=== PATIENT | female | born 1995 | race African-American/Black ===

== ENCOUNTER 2016-05-02 19:52 | Emergency (ER) | payer SELFPAY ==
[~2016-05-02] VITALS: Ht 180.3 cm; Wt 59.0 kg
[~2016-05-02 19:52] MED LIST: ACETAMINOPHEN-1 EAC1 ORAL; CIPROFLOXACIN500 M2 ORAL; IBUPROFEN600 MG ORAL; MACROBID100 MG ORAL; NORCO 5-325 TA1 EACH ORAL; PHENERGAN25 M1 ORAL; ZOFRAN ODT4 MG ORAL
[2016-05-02 20:22] VITALS: BP 117/81
[2016-05-02] MEDS ORDERED: Metoclopramide 10mg/10ml Liq NG ONE (21:00)
--- NOTE | 2016-05-02 21:32 | Emergency Room Report ---
History of Present Illness General Chief Complaint: Abdominal Pain Present Illness HPI 20-year-old female presents to emergency department complaining of nausea, vomiting and upper abdominal pain times one day. Patient states last vaginal period was the end of February. Patient denies lower abdominal pain denies vaginal discharge denies vaginal bleeding. Patient denies blood in the vomit patient denies constipation or diarrhea. Patient rates her pain as 8/10 in severity localized to the epigastric region. Patient also reports mild burning sensation. Patient denies recent travel or ill contacts. Patient denies previous pregnancies. As dysuria, hematuria or frequency . Denies CP, Palpitations, LOC, AMS, dizziness, Changes in Vision, Sensation, paresthesias, or a sudden severe headache. (Herminia Almazan P.A.) Allergies: Coded Allergies: No Known Allergies (Unverified , 01/04/14) Patient History Past Medical History: see triage record Past Surgical History: none Pertinent Family History: none Last Menstrual Period: feb Reviewed Nursing Documentation: PMH: Agreed, PSxH: Agreed (Herminia Almazan P.ADwight) Nursing Documentation-PMH Hx Neurological Problems: Yes - MIGRAINE (Herminia Almazan P.ADwight) Review of Systems All Other Systems: negative except mentioned in HPI (Herminia Almazan P.A.) Physical Exam Vital Signs Date Time Temp Pulse Resp B/P Pulse Ox O2 Delivery O2 Flow Rate FiO2 05/02/16 20:03 98.1 67 16 112/77 99 Room Air Sp02 EP Interpretation: reviewed, normal General Appearance: no apparent distress, alert, GCS 15, non-toxic Head: normocephalic, atraumatic Eyes: bilateral eye PERRL, bilateral eye normal inspection ENT: hearing grossly normal, normal pharynx, no angioedema, normal voice Neck: full range of motion, supple/symm/no masses Respiratory: chest non-tender, lungs clear, normal breath sounds, speaking full sentences Cardiovascular #1: regular rate, rhythm, no edema Gastrointestinal: normal bowel sounds, non tender, soft, no guarding, no rebound, other - Negative [place] signs, Negative MacBurney's sign, Negative Rosvigns Sign, Negative Psoas, No Peritoneal signs. mild midline Epigastric TTP , no TTP to the lower quadrants. Rectal: deferred Genitourinary: normal inspection, no CVA tenderness Musculoskeletal: back normal, gait/station normal, normal range of motion, non- tender, no calf tenderness Neurologic: alert, oriented x3, responsive, motor strength/tone normal, sensory intact, speech normal Psychiatric: judgement/insight normal, memory normal, mood/affect normal, no suicidal/homicidal ideation Skin: normal color, no rash, warm/dry, well hydrated Lymphatic: no adenopathy (Herminia Almazan) Medical Decision Making PA Attestation Dr. Martinez is my supervising Physician whom patient management has been discussed with. (Herminia Almazan) Diagnostic Impression: Primary Impression: Positive test Additional Impression: Nausea and vomiting during ER Course 20-year-old female presents to emergency department complaining of nausea, vomiting and upper abdominal pain times one day. Patient states last vaginal period was the end of February. Patient denies lower abdominal pain denies vaginal discharge denies vaginal bleeding. Patient denies blood in the vomit patient denies constipation or diarrhea. Patient rates her pain as 8/10 in severity localized to the epigastric region. Patient also reports mild burning sensation. Patient denies recent travel or ill contacts. Patient denies previous pregnancies. As dysuria, hematuria or frequency . Ddx considered but are not limited to: , ectopic , viral GE, UTI Vital signs: are WNL, pt. is afebrile H&PE are most consistent with: benign abdominal PE, no suggestion of acute intra -abdominal process. ORDERS: -Urine hcg- Positive -serum Hcg Quant: Pending -Pelvic US complete- Pending ED INTERVENTIONS: -10mg Reglan PO Pt is signed out to Dr. Delacruz Labs Test 05/02/16 20:15 Urine HCG, Qualitative Positive (Herminia Amlazan PDwightADwight) ER Course Received signout from Dr Martinez and WING Almazan to followup Pelvic sono for + preg with abd pain IUP verified No other abnormaltiy Patient feels better Advised MANAGER HEART FAILURE followup Understands to return to ER for worsening pain, vaginal bleeding, other concerns DC home (SAMAN DELACRUZ M.D.) Last Vital Signs Date Time Temp Pulse Resp B/P Pulse Ox O2 Delivery O2 Flow Rate FiO2 05/02/16 20:22 98.0 71 15 117/81 99 Room Air (Herminia Almazan P.A.) Status: improved (SAMAN DELACRUZ M.D.) Disposition: HOME, SELF-CARE Signed Out To: Dr. Delacruz (Herminia Almazan) Herminia Almazan May 02, 2016 21:32 SAMAN DELACRUZ M.D. May 02, 2016 23:29
[2016-05-02 23:13] VITALS: BP 121/84
[2016-05-02 23:30] VITALS: BP 121/84
--- NOTE | 2016-05-03 10:27 | Diagnostic Imaging Report ---
Indication: PAIN positive test Technique: Transabdominal and transvaginal images Comparison: Findings: Uterus measures 10.3 cm length of 7.2 cm AP. Within the endometrium, there is a gestational sac which contains a pole with a crown-rump length of 36 mm, corresponding to an estimated gestational age of 10 weeks 4 days. Is positive heart activity, heart rate 171 beats for minute. Yolk sac is also demonstrated. No subchorionic hemorrhage. Normal myometrium. No free cul-de-sac fluid. Left ovary measures 2.3 cm length. Right ovary measures 2.3 cm length. No adnexal mass. Impression: 10 week 4 day, by crown-rump length measurement, single live intrauterine . No unusual features
== END 2016-05-02 23:30 | disposition home or self-care (01) ==
LOC: EMR 20:21
DX: O21.9 Vomiting of pregnancy, unspecified (principal); Z3A.00 Weeks of gestation of pregnancy not specified
CPT/HCPCS: 76856; 81025; 99283

== ENCOUNTER 2016-07-31 00:50 | Emergency (ER) | payer SELFPAY ==
[~2016-07-31] VITALS: Ht 182.9 cm; Wt 68.0 kg
[2016-07-31] MEDS ORDERED: PRENATAL 19 TA1 EAC1 PO (01:00)
--- NOTE | 2016-07-31 01:26 | Emergency Room Report ---
History of Present Illness General Chief Complaint: Abdominal Pain Source: Patient Present Illness HPI Patient present with complaints of bilateral lower abdominal cramping Reports pain came on this evening approximately 8 PM Patient is not clear on the date of her however approximately 6 months Denies any vaginal bleeding or gush of fluids Denies any chest pain or shortness of breath denies any flank pain Patient did have episode of vomiting as well denies any diarrhea Cramping is 7/10 Denies any dysuria frequency Allergies: Coded Allergies: No Known Allergies (Unverified , 01/04/14) Patient History Past Medical History: see triage record Pertinent Family History: none Last Menstrual Period: unk Now: Yes - 6 months : 1 Para: 0 Reviewed Nursing Documentation: PMH: Agreed, PSxH: Agreed Nursing Documentation-PMH Hx Neurological Problems: Yes - MIGRAINE Review of Systems All Other Systems: negative except mentioned in HPI Physical Exam Vital Signs Date Time Temp Pulse Resp B/P Pulse Ox O2 Delivery O2 Flow Rate FiO2 07/31/16 00:54 98.4 100 20 122/73 100 Room Air Sp02 EP Interpretation: reviewed, normal General Appearance: mild distress - Patient appears uncomfortable Head: normocephalic, atraumatic Eyes: bilateral eye EOMI, bilateral eye PERRL ENT: hearing grossly normal, normal pharynx, TMs + canals normal, uvula midline Neck: full range of motion, supple, no meningismus, no bony tend Respiratory: lungs clear, normal breath sounds, no rhonchi, no respiratory distress, no retraction, no accessory muscle use Cardiovascular #1: normal peripheral pulses, regular rate, rhythm, no edema, no gallop, no JVD, no murmur Gastrointestinal: normal bowel sounds, no hernia, no pulsatile mass, no rebound , other - abdomen is palpable, uncomfortable on palpation of the suprapubic area Genitourinary: no CVA tenderness, other - os is closed on the pelvic exam, there is white discharge noted Musculoskeletal: normal inspection Neurologic: oriented x3, responsive, jackscrew man III-XII nml as tested, motor strength/ tone normal, sensory intact Psychiatric: mood/affect normal Skin: normal color, no rash, warm/dry, palpation normal Lymphatic: normal inspection, no adenopathy Medical Decision Making Diagnostic Impression: Primary Impression: Abdominal pain affecting ER Course The os is closed, patient's pelvic exam shows evidence of discharge, raising concern of possible PID Otherwise patient's urine sample is clear Given the patient's questionable weeks of however likely over 24 weeks And given the abdominal pain and off-and-on cramping patient will require labor and delivery followup We do not have that service available at this facility contact was made with [facility] I spoke to Dr. Major who will accept the patient to that facility Labs Test 07/31/16 01:04 07/31/16 01:30 Urine Color Yellow Urine Appearance Clear Urine pH 8 (4.5-8.0) Urine Specific [place] 1.010 (1.005-1.035) Urine Protein Negative (NEGATIVE) Urine Glucose (UA) Negative (NEGATIVE) Urine Ketones Negative (NEGATIVE) Urine Occult Blood Negative (NEGATIVE) Urine Nitrite Negative (NEGATIVE) Urine Bilirubin Negative (NEGATIVE) Urine Urobilinogen Normal MG/DL (0.0-1.0) Urine Leukocyte Esterase Negative (NEGATIVE) White Blood Count 9.8 K/UL (4.8-10.8) Red Blood Count 3.47 M/UL (4.20-5.40) Hemoglobin 10.8 G/DL (12.0-16.0) Hematocrit 31.1 % (37.0-47.0) Mean Corpuscular Volume 90 FL (80-99) Mean Corpuscular Hemoglobin 31.2 PG (27.0-31.0) Mean Corpuscular Hemoglobin Concent 34.8 G/DL (32.0-36.0) Red Cell Distribution Width 11.7 % (11.6-14.8) Platelet Count 215 K/UL (150-450) Mean Platelet Volume 7.8 FL (6.5-10.1) Neutrophils (%) (Auto) 78.6 % (45.0-75.0) Lymphocytes (%) (Auto) 12.5 % (20.0-45.0) Monocytes (%) (Auto) 7.9 % (1.0-10.0) Eosinophils (%) (Auto) 0.2 % (0.0-3.0) Basophils (%) (Auto) 0.9 % (0.0-2.0) Sodium Level 134 mEQ/L (135-145) Potassium Level 4.3 mEQ/L (3.4-4.9) Chloride Level 97 mEQ/L (98-107) Carbon Dioxide Level 23 mEQ/L (20-30) Anion Gap 14 (5-15) Blood Urea Nitrogen 8 mg/dL (7-23) Creatinine 0.6 mg/dL (0.5-0.9) Estimat Glomerular Filtration Rate > 60 mL/min (>60) Glucose Level 104 mg/dL (74-106) Calcium Level 9.0 mg/dL (8.6-10.2) Total Bilirubin < 0.2 mg/dL (0.0-1.2) Aspartate Amino Transf (AST/SGOT) 13 U/L (5-40) Alanine Aminotransferase (ALT/SGPT) 6 U/L (3-33) Alkaline Phosphatase 44 U/L (35-104) Total Protein 6.7 g/dL (6.6-8.7) Albumin 3.3 g/dL (3.5-5.2) Globulin 3.4 g/dL Albumin/Globulin Ratio 0.9 (1.0-2.7) Lipase 20 U/L (< 60) Last Vital Signs Date Time Temp Pulse Resp B/P Pulse Ox O2 Delivery O2 Flow Rate FiO2 07/31/16 00:54 98.4 100 20 122/73 100 Room Air Status: improved Disposition: XFER SHT-TRM HOSP Condition: Serious VASILIY ACOSTA D.O. Jul 31, 2016 01:26
[2016-07-31] MEDS ORDERED: Metoclopramide 10mg/2ml Inj IVP ONE (01:30)
[2016-07-31 01:31] LABS: APPEARANCE,URINE CLEAR; KETONES,URINE NEGATIVE (NEGATIVE); NITRITE,URINE NEGATIVE (NEGATIVE); PH,URINE 8 (4.5-8.0); PROTEIN,URINE NEGATIVE (NEGATIVE); UROBILINOGEN,URINE NORMAL MG/DL (0.0-1.0)
[2016-07-31 01:40] LABS: LEUKOCYTE ESTERASE ,URINE NEGATIVE (NEGATIVE)
[2016-07-31 01:59] LABS: BASOPHILS % (AUTO) 0.9 % (0.0-2.0); EOSINOPHILS % (AUTO) 0.2 % (0.0-3.0); LYMPHOCYTES % (AUTO) 12.5 % (20.0-45.0); MEAN CORPUSCULAR HEMOGLOBIN 31.2 PG (27.0-31.0); MEAN CORPUSCULAR HGB CONC 34.8 G/DL (32.0-36.0); MEAN CORPUSCULAR VOLUME 90 FL (80-99); MEAN PLATELET VOLUME 7.8 FL (6.5-10.1); MONOCYTES % (AUTO) 7.9 % (1.0-10.0); NEUTROPHILS % (AUTO) 78.6 % (45.0-75.0); PLATELET COUNT 215 K/UL (150-450); RED BLOOD COUNT 3.47 M/UL (4.20-5.40); RED CELL DISTRIBUTION WIDTH 11.7 % (11.6-14.8); WHITE BLOOD COUNT 9.8 K/UL (4.8-10.8)
[2016-07-31 02:08] VITALS: BP 106/75
[2016-07-31 02:13] LABS: ALANINE AMINOTRANSFERASE 6 U/L (3-33); ALBUMIN/GLOBULIN RATIO 0.9 (1.0-2.7); ANION GAP 14 (5-15); ASPARTATE AMINO TRANSFERASE 13 U/L (5-40); CARBON DIOXIDE 23 mEQ/L (20-30); CHLORIDE 97 mEQ/L (98-107); CREATININE 0.6 mg/dL (0.5-0.9); GLOMERULAR FILTRATION RATE > 60 mL/min (>60); HEMOLYSIS 0; LIPASE 20 U/L (< 60); POTASSIUM 4.3 mEQ/L (3.4-4.9); SODIUM 134 mEQ/L (135-145); TOTAL PROTEIN 6.7 g/dL (6.6-8.7)
[2016-07-31 02:46] VITALS: BP 106/75
== END 2016-07-31 02:55 | disposition short-term general hospital (02) ==
LOC: EMR 01:40
DX: R10.9 Unspecified abdominal pain (principal); O26.92 Pregnancy related conditions, unspecified, second trimester; Z3A.24 24 weeks gestation of pregnancy; R11.10 Vomiting, unspecified
CPT/HCPCS: 36415; 80053; 81003; 83690; 85025; 96374; 96375; 99285; J2765

== ENCOUNTER 2017-04-17 17:12 | Emergency (ER) | payer OTHER ==
[~2017-04-17] VITALS: Ht 180.3 cm; Wt 77.6 kg
[~2017-04-17 17:12] MED LIST changes: +PRENATAL 19 TA1 EAC1 PO
--- NOTE | 2017-04-17 17:42 | Emergency Room Report ---
History of Present Illness General Chief Complaint: Pain Source: Patient Present Illness HPI 21 YO Female presents to the ED c/o 8/10 right foot pain and pain to the lower sides of both ankles x 1 week. denies trauma or fall. pt. also reports 5/10 in severity left heel pain. Reports working long hours standing/walking. pain mainly localized to plantar aspect of the right foot. denies swelling, open wounds, bruises, or erythema. pt. is currently . Denies numbness tingling or loss of sensation or gross motor movements of the extremities, incontinence of bowel or bladder. Denies CP, Palpitations, LOC, AMS, dizziness, Changes in Vision, Sensation, paresthesias, or a sudden severe headache. Allergies: Coded Allergies: No Known Allergies (Unverified , 01/04/14) Patient History Past Medical History: see triage record Past Surgical History: none Pertinent Family History: none Last Menstrual Period: Now: No : 1 Para: 1 Reviewed Nursing Documentation: PMH: Agreed, PSxH: Agreed Nursing Documentation-PMH Hx Neurological Problems: Yes - MIGRAINE Review of Systems All Other Systems: negative except mentioned in HPI Physical Exam Vital Signs Date Time Temp Pulse Resp B/P (MAP) Pulse Ox O2 Delivery O2 Flow Rate FiO2 04/17/17 17:23 98.4 70 20 111/76 98 Room Air 98.4 Sp02 EP Interpretation: reviewed, normal General Appearance: no apparent distress, alert, GCS 15, non-toxic Head: normocephalic, atraumatic Eyes: bilateral eye normal inspection, bilateral eye PERRL ENT: hearing grossly normal, normal voice Neck: full range of motion Respiratory: chest non-tender, lungs clear, normal breath sounds, speaking full sentences Cardiovascular #1: regular rate, rhythm, no edema, normal capillary refill Musculoskeletal: back normal, gait/station normal - some compensation noted. , normal range of motion, tender - TTP to the plantar aspect of the right foot. and the left heel, no instability, open wounds, bruises, swelling or obvious deformities. Neurologic: alert, oriented x3, responsive, motor strength/tone normal, sensory intact, speech normal, grossly normal Psychiatric: judgement/insight normal Skin: normal color, no rash, warm/dry, well hydrated Medical Decision Making PA Attestation Dr. avelar is my supervising Physician whom patient management has been discussed with. Diagnostic Impression: Primary Impression: Plantar fasciitis Additional Impression: Ankle pain Qualified Codes: M25.571 - Pain in right ankle and joints of right foot ER Course 21 YO Female presents to the ED c/o 8/10 right foot pain and pain to the lower sides of both ankles x 1 week. denies trauma or fall. pt. also reports 5/10 in severity left heel pain. Reports working long hours standing/walking. pain mainly localized to plantar aspect of the right foot. denies swelling, open wounds, bruises, or erythema. pt. is currently . Denies numbness tingling or loss of sensation or gross motor movements of the extremities, incontinence of bowel or bladder. Denies CP, Palpitations, LOC, AMS, dizziness, Changes in Vision, Sensation, paresthesias, or a sudden severe headache. Ddx considered but are not limited to Fracture, dislocation, contusion, Sprain/ Strain/Spasm, plantar fasciitis, ankle splints. Vital signs: are WNL, pt. is afebrile H&PE are most consistent with musculoskeletal injury will perform imaging to r/ o fractures/dislocations. ORDERS: - X-ray Right Foot 3 views - negative for fx, Dislocation, or significant soft tissue injury, per preliminary read in ED, and signed by WING Almazan , my supervising physician has reviewed, and agrees with my interpretation. - X-ray Left Foot 2 views - negative for fx, Dislocation, or significant soft tissue injury, per preliminary read in ED, and signed by WING Almazan , my supervising physician has reviewed, and agrees with my interpretation ED INTERVENTIONS: -Motrin PO DISCHARGE: At this time pt. is stable for d/c to home. Will provide printed patient care instructions, and any necessary prescriptions. Care plan and follow up instructions have been discussed with the patient prior to discharge. Other X-Ray Diagnostic Results Other X-Ray Diagnostic Results #1: X-Ray ordered: right foot # of Views/Limited Vs Complete: 3 View Indication: Pain EP Interpretation: Yes WING Xray: Interpretation reviewed, by supervising MD, and agrees with findings. Interpretation: no dislocation, no soft tissue swelling, no fractures Impression: No acute disease Electronically Signed by: Herminia Almazan PA-C Other X-Ray Diagnostic Results #2: X-Ray ordered: Left Foot # of Views/Limited Vs Complete: 2 View Indication: Pain EP Interpretation: Yes WING Xray: Interpretation reviewed, by supervising MD, and agrees with findings. Interpretation: no soft tissue swelling, no fractures Impression: No acute disease Electronically Signed by: Herminia Almazan PA-C Last Vital Signs Date Time Temp Pulse Resp B/P (MAP) Pulse Ox O2 Delivery O2 Flow Rate FiO2 04/17/17 17:23 98.4 70 20 111/76 98 Room Air 98.4 Disposition: HOME, SELF-CARE Condition: Stable Scripts Naproxen Sodium (NAPROXEN SODIUM) 550 Mg Tablet 550 MG ORAL TWICE A DAY for 7 Days, #14 TAB Prov: Herminia Almazan 04/17/17 Departure Forms: Return to Work Return to Work Date: Apr 18, 2017 Work Restrictions: No Prolonged Standing Other Restrictions: no prolonged standing or walking. please accomodate with chair. Return to Full Activity: Apr 25, 2017 Patient Instructions: Ankle Pain, Plantar Fasciitis Additional Instructions: Take medications as directed. Follow up with a Primary Care Provider in 3-5 days, even if your symptoms have resolved. --Please review list of primary care clinics, if you do not already have a primary care provider Return sooner to ED if new symptoms occur, or current symptoms become worse. - Please note that this Emergency Department Report was dictated using [employer] staff technology software, occasionally this can lead to erroneous entry secondary to interpretation by the dictation equipment. Herminia Almazan Apr 17, 2017 17:42
[2017-04-17] MEDS ORDERED: NAPROXEN SODIU550 M1 ORAL (18:02)
[2017-04-17 18:20] VITALS: BP 111/76
[2017-04-17 18:21] VITALS: BP 111/76
--- NOTE | 2017-04-18 08:37 | Diagnostic Imaging Report ---
Indication: Right foot pain Technique: 3 views ] foot Comparison: none Findings: There is mild hammertoe deformity of the fourth and fifth digits. No acute fractures. No dislocations. The joint spaces are preserved. Impression: No acute process
--- NOTE | 2017-04-18 08:43 | Diagnostic Imaging Report ---
Indication: Left foot pain Technique: 3 views left foot Comparison: none Findings: There is hallux valgus and metatarsus adductus. There is slight hammertoe deformity of the fourth and fifth digits. No acute fractures. No dislocations. Joint spaces are preserved. Impression: No acute bony trauma
== END 2017-04-17 18:22 | disposition home or self-care (01) ==
LOC: EMR 18:10
DX: M72.2 Plantar fascial fibromatosis (principal); M20.12 Hallux valgus (acquired), left foot; M20.41 Other hammer toe(s) (acquired), right foot
CPT/HCPCS: 99284

== ENCOUNTER 2018-07-18 07:41 | Emergency (ER) | payer OTHER ==
[~2018-07-18] VITALS: Ht 167.6 cm; Wt 68.0 kg
[~2018-07-18 07:41] MED LIST changes: +NAPROXEN SODIU550 M1 ORAL
[2018-07-18] MEDS ORDERED: NKM (07:55)
[2018-07-18] MEDS ORDERED: Morphine Sulfate 4mg/ml Inj (IV USE ONLY) IVP ONE (08:15)
[2018-07-18 08:24] LABS: BASOPHILS % (AUTO) 1.3 % (0.0-2.0); EOSINOPHILS % (AUTO) 7.8 % (0.0-3.0); HEMOGLOBIN 13.4 G/DL (12.0-16.0); LYMPHOCYTES % (AUTO) 44.6 % (20.0-45.0); MEAN CORPUSCULAR VOLUME 86 FL (80-99); MONOCYTES % (AUTO) 8.9 % (1.0-10.0); NEUTROPHILS % (AUTO) 37.4 % (45.0-75.0); PLATELET COUNT 354 K/UL (150-450); RED BLOOD COUNT 4.78 M/UL (4.20-5.40); RED CELL DISTRIBUTION WIDTH 11.7 % (11.6-14.8); WHITE BLOOD COUNT 5.8 K/UL (4.8-10.8)
[2018-07-18 08:26] LABS: APPEARANCE,URINE SLIGHTLY CLOUDY; BILIRUBIN, URINE NEGATIVE (NEGATIVE); COLOR,URINE PALE YELLOW; GLUCOSE, URINE (UA) NEGATIVE (NEGATIVE); KETONES,URINE NEGATIVE (NEGATIVE); LEUKOCYTE ESTERASE ,URINE 2+ (NEGATIVE); NITRITE,URINE NEGATIVE (NEGATIVE); PH,URINE 6.5 (4.5-8.0); PROTEIN,URINE NEGATIVE (NEGATIVE); UROBILINOGEN,URINE NORMAL MG/DL (0.0-1.0)
[2018-07-18 08:27] VITALS: BP 114/77
--- NOTE | 2018-07-18 08:30 | NUR ---
ED Nurse Note: pt walked in due to mid and lower abdominal pain started yesterday. pt stated that after she ate tamarind it satrted to hurt, pt denies nause and vomiting, denies dysuria. seen by shira, pt able to give urine specimen and blood drawn and was sent to lab. pt medicated and tolerated well. will continue to monitor
[2018-07-18 08:32] LABS: ANION GAP 7 mmol/L (5-15); BLOOD UREA NITROGEN 11 mg/dL (7-18); CARBON DIOXIDE 28 MMOL/L (21-32); CHLORIDE 103 MMOL/L (98-107); CREATININE 0.8 MG/DL (0.55-1.30); POTASSIUM 3.9 MMOL/L (3.5-5.1); SODIUM 138 MMOL/L (136-145)
[2018-07-18 08:36] LABS: ALANINE AMINOTRANSFERASE 12 U/L (12-78); ALBUMIN 3.6 G/DL (3.4-5.0); ALBUMIN/GLOBULIN RATIO 0.8 (1.0-2.7); ALKALINE PHOSPHATASE 81 U/L (46-116); ASPARTATE AMINO TRANSFERASE 12 U/L (15-37); BILIRUBIN,TOTAL 0.3 MG/DL (0.2-1.0)
--- NOTE | 2018-07-18 08:39 | NUR ---
ED Nurse Note: pt went to [facility] with tech
--- NOTE | 2018-07-18 09:05 | Emergency Room Report ---
History of Present Illness General Chief Complaint: Abdominal Pain Source: Patient Present Illness HPI 22-year-old female presents ED for evaluation. Complaining of abdominal pain started this morning. Pain is suprapubic, sharp, 7 out of 10, nonradiating. Denies fevers or chills. Denies vomiting or diarrhea. Denies flank pain. No other aggravating relieving factors. Denies any other associated symptoms Allergies: Coded Allergies: No Known Allergies (Unverified , 07/18/18) Patient History Past Medical History: migraines Past Surgical History: none Pertinent Family History: none Social History: Denies: smoking, alcohol use, drug use Last Menstrual Period: 06/05/18 Now: No Immunizations: UTD Reviewed Nursing Documentation: PMH: Agreed; PSxH: Agreed Nursing Documentation-PMH Past Medical History: No Stated History Hx Neurological Problems: Yes - MIGRAINE Review of Systems All Other Systems: negative except mentioned in HPI Physical Exam Vital Signs Date Time Temp Pulse Resp B/P (MAP) Pulse Ox O2 Delivery O2 Flow Rate FiO2 07/18/18 07:50 98.1 62 16 114/77 (89) 98 Room Air Sp02 EP Interpretation: reviewed, normal General Appearance: no apparent distress, alert, GCS 15, non-toxic Head: normocephalic, atraumatic Eyes: bilateral eye normal inspection, bilateral eye PERRL ENT: hearing grossly normal, normal pharynx, no angioedema, normal voice Neck: full range of motion, supple/symm/no masses Respiratory: chest non-tender, lungs clear, normal breath sounds, speaking full sentences Cardiovascular #1: regular rate, rhythm, no edema Cardiovascular #2: 2+ carotid (R), 2+ carotid (L), 2+ radial (R), 2+ radial (L) , 2+ dorsalis pedis (R), 2+ dorsalis pedis (L) Gastrointestinal: normal bowel sounds, soft, non-distended, no guarding, no rebound, tenderness Rectal: deferred Genitourinary: normal inspection, no CVA tenderness Musculoskeletal: back normal, gait/station normal, normal range of motion, non- tender Neurologic: alert, oriented x3, responsive, motor strength/tone normal, sensory intact, speech normal Psychiatric: judgement/insight normal, memory normal, mood/affect normal, no suicidal/homicidal ideation Reflexes: 3+ bicep (R), 3+ bicep (L), 3+ tricep (R), 3+ tricep (L), 3+ knee (R) , 3+ knee (L) Skin: normal color, no rash, warm/dry, well hydrated Lymphatic: no adenopathy Medical Decision Making Diagnostic Impression: Primary Impression: Ovarian cyst Qualified Codes: N83.201 - Unspecified ovarian cyst, right side ER Course Hospital Course 22-year-old F presents to ED with lower abdominal pain Differential diagnosis includes- cystitis, UTI, constipation, ovarian cyst/ torsion Clinical course Patient placed on stretcher. After initial history and physical I ordered labs , IV fluids, Pelvic US Labs - no leukocytosis, electrolytes ok, LFTs normal, UA unremarkable Pelvic US - R hemorrhagic cyst with free fluid. good flow to both ovaries On reassessment symptoms improved. Discussed findings with patient. Safe for discharge close outpatient follow-up. States she has an BILINGUAL NANNY I feel this is a highly complex case requiring extensive working including EKG/ Rhythm strip, Xray/CT/US, Blood/urine lab work, repeat exams while in ED, and administration of strong opiates/narcotics for pain control, admission to hospital or close patient follow up. Diagnosis - ovarian cyst Stable and discharged to home with Rx Motrin. Followup with PMD. Return to ED if symptoms recur or worsen Labs Test 07/18/18 08:10 White Blood Count 5.8 K/UL (4.8-10.8) Red Blood Count 4.78 M/UL (4.20-5.40) Hemoglobin 13.4 G/DL (12.0-16.0) Hematocrit 41.0 % (37.0-47.0) Mean Corpuscular Volume 86 FL (80-99) Mean Corpuscular Hemoglobin 28.0 PG (27.0-31.0) Mean Corpuscular Hemoglobin Concent 32.7 G/DL (32.0-36.0) Red Cell Distribution Width 11.7 % (11.6-14.8) Platelet Count 354 K/UL (150-450) Mean Platelet Volume 7.1 FL (6.5-10.1) Neutrophils (%) (Auto) 37.4 % (45.0-75.0) Lymphocytes (%) (Auto) 44.6 % (20.0-45.0) Monocytes (%) (Auto) 8.9 % (1.0-10.0) Eosinophils (%) (Auto) 7.8 % (0.0-3.0) Basophils (%) (Auto) 1.3 % (0.0-2.0) Urine Color Pale yellow Urine Appearance Slightly cloudy Urine pH 6.5 (4.5-8.0) Urine Specific [place] 1.010 (1.005-1.035) Urine Protein Negative (NEGATIVE) Urine Glucose (UA) Negative (NEGATIVE) Urine Ketones Negative (NEGATIVE) Urine Blood Negative (NEGATIVE) Urine Nitrite Negative (NEGATIVE) Urine Bilirubin Negative (NEGATIVE) Urine Urobilinogen Normal MG/DL (0.0-1.0) Urine Leukocyte Esterase 2+ (NEGATIVE) Urine RBC 2-4 /HPF (0 - 2) Urine WBC 2-4 /HPF (0 - 2) Urine Squamous Epithelial Cells Many /LPF (NONE/OCC) Urine Bacteria Few /HPF (NONE) Urine HCG, Qualitative Negative (NEGATIVE) Sodium Level 138 MMOL/L (136-145) Potassium Level 3.9 MMOL/L (3.5-5.1) Chloride Level 103 MMOL/L (98-107) Carbon Dioxide Level 28 MMOL/L (21-32) Anion Gap 7 mmol/L (5-15) Blood Urea Nitrogen 11 mg/dL (7-18) Creatinine 0.8 MG/DL (0.55-1.30) Estimat Glomerular Filtration Rate > 60 mL/min (>60) Glucose Level 101 MG/DL (74-106) Calcium Level 9.0 MG/DL (8.5-10.1) Total Bilirubin 0.3 MG/DL (0.2-1.0) Aspartate Amino Transf (AST/SGOT) 12 U/L (15-37) Alanine Aminotransferase (ALT/SGPT) 12 U/L (12-78) Alkaline Phosphatase 81 U/L (46-116) Total Protein 8.1 G/DL (6.4-8.2) Albumin 3.6 G/DL (3.4-5.0) Globulin 4.5 g/dL Albumin/Globulin Ratio 0.8 (1.0-2.7) Lipase 123 U/L (73-393) CT/MRI/US Diagnostic Results CT/MRI/US Diagnostic Results : Imaging Test Ordered: Pelvic US Impression The ovaries appear normal bilaterally with good dopplerable blood flow. There is a 2 cm hemorrhagic cysts within the right ovary. Last Vital Signs Date Time Temp Pulse Resp B/P (MAP) Pulse Ox O2 Delivery O2 Flow Rate FiO2 07/18/18 08:27 98.1 62 16 114/77 98 Room Air Status: improved Disposition: HOME, SELF-CARE Condition: Stable Scripts Ibuprofen* (MOTRIN*) 600 Mg Tablet 600 MG ORAL Q8H PRN for For Pain, #30 TAB 0 Refills Prov: Pierre Lopez MD 07/18/18 Referrals: NON PHYSICIAN (PCP) Pierre Lopez MD July 18, 2018 09:05
--- NOTE | 2018-07-18 09:36 | NUR ---
ED Nurse Note: pt went back from [facility] with tech
[2018-07-18 10:30] VITALS: BP 115/75
[2018-07-18] MEDS ORDERED: IBUPROFEN600 MG ORAL (10:57)
[2018-07-18 11:00] VITALS: BP 114/77
--- NOTE | 2018-07-18 11:00 | NUR ---
ER DISCHARGE NOTE: Patient is cleared to be discharged per ERMD, pt is aox4, on room air, with stable vital signs. pt was given dc and prescription instructions, pt was able to verbalize understanding, pt id band and iv site removed without complications. pt is able to ambulate with steady gait. pt took all belongings.
--- NOTE | 2018-07-18 11:35 | Diagnostic Imaging Report ---
Indication:Lower abdominal and pelvic pain. test negative Technique: Grayscale and duplex Doppler imaging of the pelvis performed utilizing a transabdominal and endovaginal scan. Comparison: None Findings: The size, contour, and configuration of the uterus is within normal limits. The endometrium is uniformly echogenic and normal in thickness. Endometrium is 3 mm in thickness. The ovaries appear normal bilaterally with good dopplerable blood flow. There is a 2 cm hemorrhagic cysts within the right ovary. Suggest follow-up at 6 weeks. Mild free fluid noted within the cul-de-sac. Uterus measures 7.8 x 5.4 x 3.5 cm. Right ovary 4.2 x 3 x 4 cm. Left ovary 2.2 x 1.4 x 1.7 cm. IMPRESSION: 2 cm hemorrhagic cyst in the right ovary. Follow-up recommended in 6 weeks. Mild free fluid.
== END 2018-07-18 11:00 | disposition home or self-care (01) ==
LOC: EMR 08:15
DX: N83.201 Unspecified ovarian cyst, right side (principal); G43.909 Migraine, unspecified, not intractable, without status migrainosus
CPT/HCPCS: 36415; 76830; 76856; 80053; 81003; 81025; 83690; 85025; 96374; 99284; J2270